=== PATIENT | female | born 1980 | race Caucasian/White ===

== ENCOUNTER 2017-01-19 07:06 | Emergency (ER) | payer MEDICAID ==
--- NOTE | 2017-01-20 10:00 | ER ---
ADMIT: 01/19/2017 RM/LOC: ER [facility] MR#: [id number] [facility] [id number] LAKESHIA VALENCIA [address] [place] [address] Emergency Room Report SEX: F AGE: 36 : 1980 DATE: 01/19/2017 ADDENDUM: A 36-year-old female coming in with anxiety and little palpitations. EKG was negative. She has had this before. She has Ativan, she can try. She is otherwise negative. She had this worked up. She needs to follow up with Dr. Krishnan. CONDITION ON DISCHARGE: Good. Efe Lechuga MD/ greg JOB #: [id number] CC: Efe Lechuga MD, Attending Physician Margie Krishnan MD, Family Physician
== END 2017-01-19 08:10 | disposition home or self-care (01) ==
LOC: ER 07:06
DX: F41.9 Anxiety disorder, unspecified (principal); R00.2 Palpitations; F17.210 Nicotine dependence, cigarettes, uncomplicated; Z88.0 Allergy status to penicillin; Z79.899 Other long term (current) drug therapy